=== PATIENT | male | born 1960 | race Hispanic/Latino ===

== ENCOUNTER 2019-08-26 09:12 | Emergency (ER) | payer SELFPAY | END 2019-08-26 10:37 | disposition home or self-care (01) | LOC: EDH 09:12 | DX: T78.40XA Allergy, unspecified, initial encounter (principal); I10 Essential (primary) hypertension; E11.9 Type 2 diabetes mellitus without complications; Z72.0 Tobacco use; X58.XXXA Exposure to other specified factors, initial encounter ==

== ENCOUNTER → 2020-03-01 | Outpatient (CLI) | payer MEDICAID ==
[~2020-03-01] MED LIST: IOHEXOL 350 MG/ML 100ML INFUS..BTL IV ONE; IOHEXOL-350 50ML VIAL IV ONE
== END | disposition home or self-care (01) ==
LOC: RAH 07:19
PROVIDERS: ATTEND Internal Medicine Cardiovascular Disease
DX: I70.0 Atherosclerosis of aorta (principal); I70.203 Unspecified atherosclerosis of native arteries of extremities, bilateral legs; J98.4 Other disorders of lung
CPT/HCPCS: 75635; Q9967 ×2

== ENCOUNTER 2021-02-12 21:26 | Emergency (ER) | payer MEDICAID | END 2021-02-13 01:25 | disposition left against medical advice (07) | LOC: EDH 21:46 | DX: M79.10 Myalgia, unspecified site (principal); Z53.21 Procedure and treatment not carried out due to patient leaving prior to being seen by health care provider ==

== ENCOUNTER 2021-02-17 08:34 | Emergency (ER) | payer MEDICAID ==
[~2021-02-17] VITALS: Ht 165.1 cm; Wt 66.7 kg
[2021-02-17 08:37] VITALS: BP 147/72
[2021-02-17] MEDS ORDERED: KETOROLAC 60 MG VIAL (30MG/ML) IM ONE (09:30)
[2021-02-17] MEDS ORDERED: HYDR-4060 PO (09:41)
[2021-02-17] MEDS ORDERED: ACYC-138 PO (09:41)
[2021-02-17 09:44] VITALS: BP 136/68
== END 2021-02-17 09:52 | disposition home or self-care (01) ==
LOC: EDH 08:34
DX: B02.8 Zoster with other complications (principal); I10 Essential (primary) hypertension; E78.00 Pure hypercholesterolemia, unspecified; I25.10 Atherosclerotic heart disease of native coronary artery without angina pectoris; Z95.5 Presence of coronary angioplasty implant and graft; E10.9 Type 1 diabetes mellitus without complications
CPT/HCPCS: 96372; 99283; J1885

== ENCOUNTER → 2022-11-20 | Outpatient (CLI) | payer MEDICAID ==
[~2022-11-20] MED LIST changes: +ACYC-138 PO; +HYDR-4060 PO; -IOHEXOL 350 MG/ML 100ML INFUS..BTL IV ONE; -IOHEXOL-350 50ML VIAL IV ONE
[2022-11-20 10:19] LABS: BASOPHILS % (AUTO) 0.7 % (0.0-5.0); EOSINOPHILS % (AUTO) 2.1 % (0.0-8.0); HEMATOCRIT 48.1 % (42-54); LYMPHOCYTES % (AUTO) 28.1 % (21.0-51.0); MEAN CORPUSCULAR HEMOGLOBIN 29.5 pg (27.0-33.0); MEAN CORPUSCULAR HGB CONC 32.6 g/dL (32.0-36.0); MEAN CORPUSCULAR VOLUME 90.2 fL (79-99); MONOCYTES % (AUTO) 5.1 % (3.0-13.0); NEUTROPHILS % (AUTO) 63.8 % (40.0-77.0); PLATELET COUNT (AUTO) 353 K/uL (130-400); RED BLOOD CELL COUNT(AUTO) 5.33 MIL/uL (4.50-6.20); RED CELL DISTRIBUTION WIDTH 13.2 % (11.0-15.5); WHITE BLOOD COUNT (AUTO) 9.2 K/uL (4.8-10.8)
[2022-11-20 10:33] LABS: ALBUMIN 3.3 g/dL (3.5-5.0); CREATININE 0.9 mg/dL (0.5-1.5); POTASSIUM 4.2 mmol/L (3.5-5.1); TOTAL PROTEIN, SERUM 7.2 g/dL (6.0-8.3)
== END | disposition home or self-care (01) ==
LOC: LAB 09:46
PROVIDERS: ATTEND Internal Medicine Gastroenterology
DX: R19.33 Right lower quadrant abdominal rigidity (principal)
CPT/HCPCS: 36415; 80053; 85025

== ENCOUNTER → 2023-01-22 | Outpatient (CLI) | payer MEDICAID ==
[2023-01-22 11:12] LABS: BASOPHILS % (AUTO) 0.4 % (0.0-5.0); EOSINOPHILS % (AUTO) 0.8 % (0.0-8.0); HEMATOCRIT 43.2 % (42-54); LYMPHOCYTES % (AUTO) 26.2 % (21.0-51.0); MEAN CORPUSCULAR HEMOGLOBIN 29.5 pg (27.0-33.0); MEAN CORPUSCULAR HGB CONC 33.1 g/dL (32.0-36.0); MEAN CORPUSCULAR VOLUME 89.1 fL (79-99); MONOCYTES % (AUTO) 5.6 % (3.0-13.0); NEUTROPHILS % (AUTO) 66.6 % (40.0-77.0); PLATELET COUNT (AUTO) 314 K/uL (130-400); RED BLOOD CELL COUNT(AUTO) 4.85 MIL/uL (4.50-6.20); RED CELL DISTRIBUTION WIDTH 13.9 % (11.0-15.5); WHITE BLOOD COUNT (AUTO) 9.9 K/uL (4.8-10.8)
[2023-01-22 11:31] LABS: ALBUMIN 3.3 g/dL (3.5-5.0); CREATININE 0.9 mg/dL (0.5-1.5); POTASSIUM 4.2 mmol/L (3.5-5.1)
== END | disposition home or self-care (01) ==
LOC: LAB 10:37
PROVIDERS: ATTEND Internal Medicine Gastroenterology
DX: R19.33 Right lower quadrant abdominal rigidity (principal)
CPT/HCPCS: 36415; 80053; 85025

== ENCOUNTER → 2023-01-26 | Outpatient (CLI) | payer MEDICAID ==
[~2023-01-26] MED LIST changes: +IOHEXOL 350 MG/ML 100ML INFUS..BTL IV ONE; +IOHEXOL-350 75 ML VIAL IV ONE
== END | disposition home or self-care (01) ==
LOC: RAH 10:08
PROVIDERS: ATTEND Internal Medicine Gastroenterology
DX: R19.33 Right lower quadrant abdominal rigidity (principal)
CPT/HCPCS: 74178; Q9967

== ENCOUNTER → 2023-05-25 | Outpatient (CLI) | payer MEDICAID ==
[~2023-05-25] MED LIST changes: +ACET-2079 PO; +AMLO-258 PO; +ASPI-1443 PO; +BENA40TA92 PO; +DAPA1TAB5 PO; +DICL100G60 TP; +ERGO500093 PO; -IOHEXOL 350 MG/ML 100ML INFUS..BTL IV ONE; -IOHEXOL-350 75 ML VIAL IV ONE; +LACT10PA4 PO; +LINA145C PO; +METO-408 PO; +NAPR-1023 PO; +OMEP40CA21 PO; +TERB250T89 PO
== END | disposition home or self-care (01) ==
LOC: SHCH 11:56
PROVIDERS: ATTEND Internal Medicine Cardiovascular Disease
DX: I08.0 Rheumatic disorders of both mitral and aortic valves (principal); I11.9 Hypertensive heart disease without heart failure; E78.5 Hyperlipidemia, unspecified; E11.9 Type 2 diabetes mellitus without complications
CPT/HCPCS: 93306

== ENCOUNTER → 2024-05-23 | Outpatient (CLI) | payer MEDICAID | END | disposition home or self-care (01) | LOC: SHCH 09:10 | PROVIDERS: ATTEND Internal Medicine Cardiovascular Disease | DX: I73.9 Peripheral vascular disease, unspecified (principal) | CPT/HCPCS: 93925; 93970 ==

== ENCOUNTER → 2024-11-04 | Outpatient (CLI) | payer MEDICAID ==
[~2024-11-04] MED LIST changes: -NAPR-1023 PO; +NAPR-1194 PO
[2024-11-04 11:36] LABS: CREATININE 0.9 mg/dL (0.5-1.3)
== END | disposition home or self-care (01) ==
LOC: LAB 10:48
PROVIDERS: ATTEND Internal Medicine Cardiovascular Disease
DX: I65.23 Occlusion and stenosis of bilateral carotid arteries (principal)
CPT/HCPCS: 36415; 82565; 84520

== ENCOUNTER → 2024-11-07 | Outpatient (CLI) | payer MEDICAID ==
[~2024-11-07] MED LIST changes: +IOHEXOL-350 75 ML VIAL IV ONE
--- NOTE | 2024-11-07 13:04 | HMCIMG ---
CT ANGIO NECK HISTORY: Occlusion and stenosis COMPARISON: None TECHNIQUE: CT angiography of the neck was performed. The study was performed using angiographic technique with maximum intensity projection reconstruction images. Patient was given 75 cc of Omnipaque. FINDINGS: There are degenerative changes of the cervical spine. Parapharyngeal fat planes are preserved bilaterally. The airway is patent. Normal enhancement of the thyroid gland is noted. Visualized portion of the lung apices are unremarkable. The common, internal and external carotid arteries are visualized. No hemodynamically significant lesion is seen of either extracranial carotid artery system. Both vertebral arteries are seen with antegrade flow. IMPRESSION: CTA Neck 1. Mild atherosclerotic disease. No hemodynamically significant lesion is seen of either extracranial carotid artery system. CT was performed with one or more following dose reduction techniques: automated exposure control, adjustment of the mA and kv according to patient's size, or use of a iterative reconstruction technique.
== END | disposition home or self-care (01) ==
LOC: RAH 10:41
PROVIDERS: ATTEND Internal Medicine Cardiovascular Disease
DX: I65.23 Occlusion and stenosis of bilateral carotid arteries (principal); M47.812 Spondylosis without myelopathy or radiculopathy, cervical region
CPT/HCPCS: 70498; Q9967